=== PATIENT | female | born 1955 | race Caucasian/White ===

== ENCOUNTER 2020-10-08 08:47 | Inpatient (IN) ==
[2020-10-08 09:09] LABS: Basophils % 0.2 %; Eosinophils # 0.1 K/mcL (0.0-0.6); Hematocrit 26.2 % (35.3-44.9); Hemoglobin 8.5 g/dL (11.5-15.4); Immature Granulocytes % 0.6 % (0-4); Lymphocytes # 2.1 K/mcL (0.6-4.6); Lymphocytes % 23.2 %; Mean Corpuscular HGB Conc 32.4 g/dL (31.6-35.5); Mean Corpuscular Hemoglobin 28.2 pg (28.0-33.3); Mean Platelet Volume 11.6 fL (9.4-12.4); Monocytes # 0.5 K/mcL (0.0-1.3); Monocytes % 5.6 %; Neutrophils # 6.2 K/mcL (1.6-8.9); Nucleated Red Blood Cells 0.6 /100 WBC (0); Platelet Count 124 K/mcL (140-400); Red Blood Count 3.01 M/mcL (3.82-4.97); Red Cell Distribution Width 18.6 % (11.5-14.5); Segmented Neutrophils % 69.4 %; White Blood Count 8.9 K/mcL (4.3-11.1)
[2020-10-08 09:23] LABS: INR 0.9; Prothrombin Time 10.9 Seconds (9.4-12.1)
[2020-10-08 09:26] LABS: Activated Partial Thrombo Time 37.9 Seconds (26.0-36.0)
[2020-10-08] MEDS ORDERED: Furosemide 40 MG/4 ML VIAL IVP ONE (09:26)
[2020-10-08 09:28] LABS: Calcium 7.7 mg/dL (8.6-10.3); Potassium 3.3 mEq/L (3.5-5.1)
[2020-10-08] MEDS ORDERED: Naloxone 0.4 MG/ML INJ IVP PRN (10:50)
[2020-10-08] MEDS ORDERED: Ondansetron 4 MG/2 ML VIAL IVP PRN (10:50)
[2020-10-08] MEDS ORDERED: Acetaminophen 325 MG TABLET PO PRN (10:50)
[2020-10-08] MEDS ORDERED: Nitroglycerin 0.4 MG TAB.SUBL SL PRN (11:02)
[2020-10-08] MEDS ORDERED: Piperacillin/Tazobactam 3.375 GM in 0.9 % Sodium Chloride Mini Bag 100 ML IVPB SCH (11:30)
[2020-10-08] MEDS: Ipratropium/Albuterol Neb 3 ML IH SCH ×3 (12:30→20:28)
[2020-10-08] MEDS: Budesonide/Formoterol 160/4.5 1 PUFF INH IH SCH ×2 (12:31→20:28)
[2020-10-08] MEDS: Albumin 25% 25gram/100mL 25 GM/100 ML IV.SOLN IVPB SCH ×2 (14:05→21:50)
[2020-10-08] MEDS: Nicotine 7 MG PATCH.TD24 TD SCH (14:14)
[2020-10-08] MEDS: carvediloL 25 MG TABLET PO SCH (16:21)
[2020-10-08] MEDS ORDERED: carvediloL 25 MG TABLET PO SCH (17:00)
[2020-10-08] MEDS: Piperacillin/Tazobactam 3.375 GM in 0.9 % Sodium Chloride Mini Bag 100 ML IVPB SCH (17:20)
[2020-10-08 18:37] LABS: Adenovirus Not Detected (Not Detect); Bordetella Pertussis Not Detected (Not Detect); Chlamydophila pneumoniae Not Detected (Not Detect); Coronavirus 229E Not Detected (Not Detect); Coronavirus HKU1 Not Detected (Not Detect); Coronavirus NL63 Not Detected (Not Detect); Coronavirus OC43 Not Detected (Not Detect); Human Metapneumovirus Not Detected (Not Detect); Human Rhinovirus/Enterovirus Not Detected (Not Detect); Influenza A Subtype 2009 H1 Not Detected (Not Detect); Influenza B Not Detected (Not Detect); Mycoplasma pneumoniae Not Detected (Not Detect); Parainfluenza Virus 1 Not Detected (Not Detect); Parainfluenza Virus 2 Not Detected (Not Detect); Parainfluenza Virus 3 Not Detected (Not Detect); Parainfluenza Virus 4 Not Detected (Not Detect); Respiratory Syncytial Virus Not Detected (Not Detect); SARS-CoV-2 Not Detected (Not Detect)
[2020-10-08] MEDS ORDERED: METOPROLOL 50 MG PO SCH (21:00)
[2020-10-08] MEDS: Furosemide 40 MG/4 ML VIAL IVP SCH (21:51)
[2020-10-08] MEDS: Apixaban 5 MG TABLET PO SCH (21:51)
[2020-10-08] MEDS: levETIRAcetam 250 MG TABLET PO SCH (21:51)
[2020-10-09] MEDS: Ipratropium/Albuterol Neb 3 ML IH SCH ×6 (01:16→21:37)
[2020-10-09] MEDS: Piperacillin/Tazobactam 3.375 GM in 0.9 % Sodium Chloride Mini Bag 100 ML IVPB SCH ×2 (04:45→17:49)
[2020-10-09] MEDS: Budesonide/Formoterol 160/4.5 1 PUFF INH IH SCH ×2 (08:32→21:37)
[2020-10-09] MEDS: levETIRAcetam 250 MG TABLET PO SCH ×2 (08:52→22:09)
[2020-10-09] MEDS: Apixaban 5 MG TABLET PO SCH ×2 (08:52→22:09)
[2020-10-09] MEDS: Aspirin 81 MG TAB.CHEW PO SCH (08:53)
[2020-10-09] MEDS: carvediloL 25 MG TABLET PO SCH ×2 (08:53→17:47)
[2020-10-09] MEDS: Cholecalciferol (D-3) 1,000 UNIT (25MCG) TABLET PO SCH (08:53)
[2020-10-09] MEDS: Furosemide 40 MG/4 ML VIAL IVP SCH (09:10)
[2020-10-09 09:19] LABS: Basophils % 0.3 %; Eosinophils # 0.1 K/mcL (0.0-0.6); Eosinophils % 1.7 %; Hematocrit 21.9 % (35.3-44.9); Immature Granulocytes % 0.9 % (0-4); Lymphocytes # 1.9 K/mcL (0.6-4.6); Lymphocytes % 30.6 %; Mean Corpuscular HGB Conc 31.1 g/dL (31.6-35.5); Mean Corpuscular Hemoglobin 28.5 pg (28.0-33.3); Mean Corpuscular Volume 91.6 fL (83.0-100.0); Mean Platelet Volume 11.6 fL (9.4-12.4); Monocytes # 0.5 K/mcL (0.0-1.3); Monocytes % 7.6 %; Neutrophils # 3.7 K/mcL (1.6-8.9); Nucleated Red Blood Cells 0.8 /100 WBC (0); Red Blood Count 2.39 M/mcL (3.82-4.97); Red Cell Distribution Width 19.4 % (11.5-14.5); Segmented Neutrophils % 58.9 %; White Blood Count 6.4 K/mcL (4.3-11.1)
[2020-10-09 09:21] LABS: Hemoglobin 6.8 g/dL (11.5-15.4); Platelet Count 88 K/mcL (140-400)
[2020-10-09 09:38] LABS: Calcium 7.8 mg/dL (8.6-10.3); Chol/HDL Ratio 3.7 (0-4.9); Magnesium 1.9 mg/dL (1.6-2.6); Potassium 3.5 mEq/L (3.5-5.1)
[2020-10-09] MEDS: Nicotine 7 MG PATCH.TD24 TD SCH (09:59)
[2020-10-09 11:15] LABS: Platelet Estimate Decreased (Normal)
[2020-10-09] MEDS ORDERED: 0.9 % Sodium Chloride 250 ML ONE (13:43)
[2020-10-09 17:14] LABS: Bilirubin,Urine Negative (Negative); Blood,Urine Moderate (Negative); Clarity,Urine Turbid (Clear); Glucose,Urine (UA) Normal (Normal); Ketones,Urine Trace mg/dL (Negative); Leukocyte Esterase,Urine Moderate (Negative); Nitrite,Urine Negative (Negative); Protein,Urine >=300 mg/dL (Neg-Trace); Urobilinogen,Urine Normal (Normal)
[2020-10-09 17:18] LABS: Color,Urine Light Yellow (Yellow)
[2020-10-09 17:24] LABS: Bacteria,Urine Moderate per hpf (None-Few); Squamous Epithelial Cell,Urine Few per hpf (None-Few); WBC,Urine TNTC per hpf (0-3)
[2020-10-10] MEDS: Ipratropium/Albuterol Neb 3 ML IH SCH ×7 (00:21→22:57)
[2020-10-10] MEDS: Piperacillin/Tazobactam 3.375 GM in 0.9 % Sodium Chloride Mini Bag 100 ML IVPB SCH ×2 (06:08→15:26)
[2020-10-10 07:26] LABS: Hematocrit 23.6 % (35.3-44.9); Hemoglobin 7.6 g/dL (11.5-15.4); Mean Corpuscular HGB Conc 32.2 g/dL (31.6-35.5); Mean Corpuscular Hemoglobin 29.1 pg (28.0-33.3); Mean Corpuscular Volume 90.4 fL (83.0-100.0); Mean Platelet Volume 12.2 fL (9.4-12.4); Red Blood Count 2.61 M/mcL (3.82-4.97); Red Cell Distribution Width 18.7 % (11.5-14.5); White Blood Count 6.8 K/mcL (4.3-11.1)
[2020-10-10 07:59] LABS: Platelet Count 76 K/mcL (140-400)
[2020-10-10] MEDS: Budesonide/Formoterol 160/4.5 1 PUFF INH IH SCH ×2 (08:02→20:18)
[2020-10-10 08:14] LABS: Calcium 7.5 mg/dL (8.6-10.3); Magnesium 1.9 mg/dL (1.6-2.6); Potassium 3.4 mEq/L (3.5-5.1)
[2020-10-10] MEDS ORDERED: cefTRIAXone 2,000 MG in 0.9 % Sodium Chloride Mini Bag 100 ML IVPB SCH (09:00)
[2020-10-10] MEDS: Nicotine 7 MG PATCH.TD24 TD SCH (09:47)
[2020-10-10] MEDS: levETIRAcetam 250 MG TABLET PO SCH ×2 (09:48→21:51)
[2020-10-10] MEDS: Apixaban 5 MG TABLET PO SCH ×2 (09:48→21:51)
[2020-10-10] MEDS: Aspirin 81 MG TAB.CHEW PO SCH (09:48)
[2020-10-10] MEDS: Cholecalciferol (D-3) 1,000 UNIT (25MCG) TABLET PO SCH (09:49)
[2020-10-10] MEDS: carvediloL 25 MG TABLET PO SCH ×2 (09:49→15:26)
[2020-10-10] MEDS: Albumin 25% 25gram/100mL 25 GM/100 ML IV.SOLN IVPB SCH ×2 (21:50→23:49)
[2020-10-10] MEDS: Nystatin POWDER 30 GM BOTTLE TP SCH (21:51)
[2020-10-10] MEDS: Furosemide 40 MG/4 ML VIAL IVP SCH (21:51)
[2020-10-11] MEDS: Ipratropium/Albuterol Neb 3 ML IH SCH ×3 (04:11→11:17)
[2020-10-11] MEDS: Piperacillin/Tazobactam 3.375 GM in 0.9 % Sodium Chloride Mini Bag 100 ML IVPB SCH (04:27)
[2020-10-11 06:08] LABS: Hematocrit 22.7 % (35.3-44.9); Hemoglobin 7.1 g/dL (11.5-15.4); Mean Corpuscular HGB Conc 31.3 g/dL (31.6-35.5); Mean Corpuscular Hemoglobin 28.5 pg (28.0-33.3); Mean Corpuscular Volume 91.2 fL (83.0-100.0); Mean Platelet Volume 12.6 fL (9.4-12.4); Red Blood Count 2.49 M/mcL (3.82-4.97); Red Cell Distribution Width 18.7 % (11.5-14.5); White Blood Count 5.8 K/mcL (4.3-11.1)
[2020-10-11 06:23] LABS: Platelet Count 64 K/mcL (140-400)
[2020-10-11 06:30] LABS: Calcium 7.7 mg/dL (8.6-10.3); Potassium 3.9 mEq/L (3.5-5.1)
[2020-10-11 07:20] VITALS: TEMP 97.5
[2020-10-11] MEDS: Budesonide/Formoterol 160/4.5 1 PUFF INH IH SCH (07:51)
[2020-10-11 08:52] LABS: Albumin 2.6 g/dL (3.5-5.7); Albumin/Globulin Ratio 1.3 (1.1-2.2); Bilirubin,Direct 0.1 mg/dL (0.0-0.2); Bilirubin,Indirect 0.1 mg/dL (0.0-1.0); Bilirubin,Total 0.2 mg/dL (0.3-1.0); Total Protein 4.6 g/dL (6.4-8.9)
[2020-10-11] MEDS: Nystatin POWDER 30 GM BOTTLE TP SCH (09:40)
[2020-10-11] MEDS: Aspirin 81 MG TAB.CHEW PO SCH (09:41)
[2020-10-11] MEDS: Cholecalciferol (D-3) 1,000 UNIT (25MCG) TABLET PO SCH (09:42)
[2020-10-11] MEDS: Apixaban 5 MG TABLET PO SCH (09:42)
[2020-10-11] MEDS: carvediloL 25 MG TABLET PO SCH (09:42)
[2020-10-11] MEDS: levETIRAcetam 250 MG TABLET PO SCH (09:42)
[2020-10-11] MEDS: Nicotine 7 MG PATCH.TD24 TD SCH (09:43)
[2020-10-11] MEDS: Furosemide 40 MG/4 ML VIAL IVP SCH (09:43)
[2020-10-11 11:04] VITALS: PULSE 87
[2020-10-11 11:13] VITALS: BP 110/62
[2020-10-11 11:20] VITALS: RESP 18; O2SAT 98
[2020-10-11 18:27] LABS: Protein/Creatinine Ratio,Urine 24.36 mg/mg (0.00-0.20)
== END 2020-10-11 12:55 | disposition short-term general hospital (02) | DRG 280 ==
LOC: INPPIK 08:47 → EMEROOPIK 08:47 → INPPIK 11:41
PROVIDERS: ADMIT Family Medicine; ATTEND Family Medicine